=== PATIENT | female | born 1970 | race Caucasian/White ===

== ENCOUNTER 2018-07-29 22:02 | Emergency (ER) | payer MEDICAID ==
[2018-07-29] MEDS ORDERED: Sodium Chloride 0.9% 1000 ML 1,000 ML IV STA (22:29)
--- NOTE | 2018-07-29 22:47 | ERPHSYRPT ---
- History of Present Illness Time Seen by Provider: 07/29/18 22:39 Source: patient Exam Limitations: no limitations Patient Subjective Stated Complaint: pt states she thinks she has had a uti for approx 2 weeks and is now having increased pain in bilat flanks and pain in joints and sttes she also has sores in her mouth. fever at home for last 3 days up to 103 Triage Nursing Assessment: pt alert and oriented, asnwers questions approp. pt ambulatory with steady gait noted. respirations nonlabored with lungs cta. abd soft and nontender to lihgt palpation. mild tenderness noted in lower back. pt states she is unable to urinate at this time. Physician History: 48-year-old white female arrives with complaint that she's had bilateral flank pain nausea symptoms for 3 weeks she states she's been having pain in her joints. Patient states she's had a fever at home. Past medical history includes hypercholesterolemia, fibromyalgia, bulging disks in her back, tachycardia, Ehler Danlos Past surgical history includes orthopedic surgery Patient with multiple allergies. Timing/Duration: week(s) (3 weeks) Severity: moderate Modifying Factors: Improves With: nothing Associated Symptoms: nausea, fever, other (bilateral flank pain), No vomiting, No abdominal pain, No shortness of breath, No heartburn, No diaphoresis, No cough, No chills, No chest pain, No headaches, No loss of appetite, No malaise, No rash, No syncope, No seizure, No weakness Allergies/Adverse Reactions: codeine Allergy (Verified 07/29/18 22:26) erythromycin base Allergy (Verified 07/29/18 22:26) nitrofurantoin [From Macrobid] Allergy (Verified 07/29/18 22:26) ondansetron [From Zofran] Allergy (Verified 07/29/18 22:26) Penicillins Allergy (Verified 07/29/18 22:26) povidone-iodine [From Betadine] Allergy (Verified 07/29/18 22:26) prednisone Allergy (Verified 07/29/18 22:26) soap [From Betadine] Allergy (Verified 07/29/18 22:26) sulfamethoxazole [From Bactrim] Allergy (Verified 07/29/18 22:26) trimethoprim [From Bactrim] Allergy (Verified 07/29/18 22:26) Home Medications: Atorvastatin Calcium [Lipitor] 20 mg PO DAILY 07/29/18 [History] Buspirone HCl [Buspar] 10 mg PO BID 07/29/18 [History] Clonazepam [Klonopin] 2 mg PO BID 07/29/18 [History] Cyclobenzaprine HCl 10 mg [Cyclobenzaprine 10 MG] 10 mg PO BID PRN PRN 05/07 [History] Diclofenac Epolamine PATCH [Flector PATCH] 1 each TP BID 07/29/18 [History ] Duloxetine HCl 30 mg [Cymbalta 30 MG Capsule] 30 mg PO DAILY 07/29/18 [ History] Duloxetine HCl 30 mg [Cymbalta 30 MG Capsule] 60 mg PO HS 07/29/18 [ History] Fish Oil/Dha/Epa [Fish Oil 1,200 mg Fish Oil] 1 each PO DAILY 07/29/18 [History] Gabapentin [Neurontin] 800 mg PO TID 07/29/18 [History] Lorazepam 0.5 mg [Ativan 0.5 MG] 0.5 mg PO Q6-8HPRN PRN 07/29/18 [History] Metoprolol Succinate 50 mg [Toprol Xl 50 MG] 50 mg PO DAILY 07/29/18 [ History] Naproxen 500 mg [Naprosyn 500 MG] 500 mg PO BID 07/29/18 [History] Oxycodone HCl/Acetaminophen [Percocet 7.5-325 mg Tablet] 1 each PO TID PRN 07/29 [History] Hx Tetanus, Diphtheria Vaccination/Date Given: Yes Hx Influenza Vaccination/Date Given: No Hx Pneumococcal Vaccination/Date Given: No Immunizations Up to Date: Yes - Review of Systems Constitutional: Fever, No Chills, No Fatigue, No Lethargy, No Malaise, No Night Sweats, No Weakness, No Weight Loss Eyes: No Symptoms Ears, Nose, & Throat: No Symptoms Respiratory: No Cough, No Dyspnea Cardiac: No Chest Pain, No Edema, No Syncope Abdominal/Gastrointestinal: Nausea, Vomiting, No Abdominal Pain, No Diarrhea, No Constipation (a), No Hematemesis, No Hematochezia, No Melena, No Dysphagia, No Appetite Changes Genitourinary Symptoms: Dysuria, Flank Pain, No Frequency, No Hematuria, No Hesitancy, No Incontinence, No Urgency, No Urinary Retention, No Menorrhagia, No , No Vaginal Bleeding, No Vaginal Discharge, No Vaginal Itching Musculoskeletal: Arthralgias, Back Pain, No Neck Pain, No Deformity, No Fall, No Injury, No Joint Redness, No Joint Pain, No Joint Swelling, No Myalgias Skin: No Rash Neurological: No Dizziness, No Focal Weakness, No Sensory Changes Psychological: No Symptoms Endocrine: No Symptoms All Other Systems: Reviewed and Negative - Past Medical History Pertinent Past Medical History: Yes Cardiac History: High Cholesterol, Other Other Medical History: fibromyalgia, bulging discs in back, tachycardia, ehler- danlo - Past Surgical History Past Surgical History: Yes Musculoskeletal: Orthopedic Surgery - Social History Smoking Status: Current every day smoker How long have you smoked: 34 Exposure to second hand smoke: No Patient Lives Alone: Yes - Female History Hx Now: No - Nursing Vital Signs Nursing Vital Signs: Initial Vital Signs Temperature 98.3 F 07/29/18 22:13 Pulse Rate 101 H 07/29/18 22:13 Respiratory Rate 18 07/29/18 22:13 Blood Pressure 101/65 07/29/18 22:13 O2 Sat by Pulse Oximetry 99 07/29/18 22:13 Pain Scale Pain Intensity 7 - Physical Exam General Appearance: no apparent distress, alert Eye Exam: PERRL/EOMI, eyes nml inspection Ears, Nose, Throat Exam: normal ENT inspection, TMs normal, pharynx normal, moist mucous membranes Neck Exam: normal inspection, non-tender, supple, full range of motion Respiratory Exam: normal breath sounds, lungs clear, No respiratory distress Cardiovascular Exam: regular rate/rhythm, normal heart sounds, normal peripheral pulses, capillary refill <2 sec Gastrointestinal/Abdomen Exam: soft, normal bowel sounds, No tenderness, No mass Back Exam: normal inspection, normal range of motion, No CVA tenderness, No vertebral tenderness Extremity Exam: normal inspection, normal range of motion, pelvis stable Neurologic Exam: alert, oriented x 3, cooperative, plasma table operator II-XII nml as tested, normal mood/affect, nml cerebellar function, nml station & gait, sensation nml, No motor deficits Skin Exam: normal color SpO2 Interpretation: normal (we'll with her99%) SpO2: 99 Ordered Tests: Active Orders 24 hr Category Date Time Status IV Insertion STAT Care 07/29/18 22:29 Active BLOOD CULTURE Stat Lab 07/29/18 23:01 Received CBC W DIFF Stat Lab 07/29/18 23:01 Completed CMP Stat Lab 07/29/18 23:01 Completed CULTURE,URINE Stat Lab 07/29/18 23:44 Received HCG QUALITATIVE,SERUM Stat Lab 07/29/18 23:01 Completed Lactic Acid Stat Lab 07/29/18 22:58 Completed Manual Differential NC Stat Lab 07/29/18 23:01 Completed UA W/RFX UR CULTURE Stat Lab 07/29/18 23:44 Completed Urine Triage Profile Stat Lab 07/29/18 23:44 Completed Medication Summary Generic Name Dose Route Start Last Admin Trade Name Freq PRN Reason Stop Dose Admin Sodium Chloride 1,000 mls @ 999 mls/hr 07/30/18 00:19 07/30/18 00:27 Sodium Chloride 0.9% 1000 Ml IV 07/30/18 01:19 999 mls/hr .Q1H1M STA Administration Discontinued Medications Generic Name Dose Route Start Last Admin Trade Name Freq PRN Reason Stop Dose Admin Sodium Chloride 1,000 mls @ 999 mls/hr 07/29/18 22:29 07/30/18 00:57 Sodium Chloride 0.9% 1000 Ml IV 07/29/18 23:29 Infused .Q1H1M STA Infusion Sodium Chloride Confirm 07/29/18 23:24 Sodium Chloride 0.9% 1000 Ml Administered 07/29/18 23:25 Dose 1,000 mls @ ud .ROUTE .STK-MED ONE Ceftriaxone Sodium/Dextrose 1 g in 50 mls @ 100 mls/hr 07/30/18 00:20 00:27 Rocephin 1 Gm-D5w 50 Ml Bag IV 07/30/18 00:49 100 mls/hr STAT STA 100 mls/hr Administration Sodium Chloride Confirm 07/30/18 00:24 Sodium Chloride 0.9% 1000 Ml Administered 07/30/18 00:25 Dose 1,000 mls @ ud .ROUTE .STK-MED ONE Ceftriaxone Sodium/Dextrose Confirm 07/30/18 00:24 Rocephin 1 Gm-D5w 50 Ml Bag Administered 07/30/18 00:25 Dose 1 g in 50 mls @ ud IV .STK-MED ONE Ketorolac Tromethamine 30 mg 07/29/18 23:23 07/29/18 23:26 Toradol 30 Mg Injection IM 07/29/18 23:24 30 mg STAT ONE Administration Ketorolac Tromethamine Confirm 07/29/18 23:24 Toradol 30 Mg Injection Administered 07/29/18 23:25 Dose 30 mg .ROUTE .STK-MED ONE Morphine Sulfate 4 mg 07/30/18 00:19 07/30/18 00:28 Morphine Sulfate 4 Mg Inj IV 07/30/18 00:20 4 mg STAT ONE Administration Morphine Sulfate Confirm 07/30/18 00:24 Morphine Sulfate 4 Mg Inj Administered 07/30/18 00:25 Dose 4 mg .ROUTE .STK-MED ONE Lab/Rad Data: Laboratory Result Diagrams 07/29/18 23:01 07/29/18 23:01 Laboratory Results 07/29/18 07/29/18 07/29/18 Range/Units 23:44 23:44 23:01 WBC (4.0-10.5) K/mm3 RBC (4.1-5.4) M/mm3 Hgb (12.0-16.0) gm/dl Hct (35-47) % MCV (78-100) fl MCH (26-32) pg MCHC (32-36) g/dl RDW (11.5-14.0) % Plt Count (150-450) K/mm3 MPV (6-9.5) fl Absolute Granulocytes (1.4-6.9) Sodium (137-145) mmol/L Potassium (3.5-5.1) mmol/L Chloride (98-107) mmol/L Carbon Dioxide (22-30) mmol/L Anion Gap (5-15) MEQ/L BUN (7-17) mg/dL Creatinine (0.52-1.04) mg/dL Estimated GFR ML/MIN Glucose (74-106) mg/dL Lactic Acid (0.4-2.0) Calcium (8.4-10.2) mg/dL Total Bilirubin (0.2-1.3) mg/dL AST (14-36) U/L ALT (0-35) U/L Alkaline Phosphatase (38-126) U/L Serum Total Protein (6.3-8.2) g/dL Albumin (3.5-5.0) g/dL Serum , Qual NEGATIVE (Negative) Urine Color SMITA (YELLOW) Urine Appearance CLOUDY (CLEAR) Urine pH 5.0 (5-6) Ur Specific [employer] [place] 1.012 (1.005-1.025) Urine Protein 100 (Negative) Urine Ketones NEGATIVE (NEGATIVE) Urine Blood MODERATE (0-5) [place]/ul Urine Nitrite NEGATIVE (NEGATIVE) Urine Bilirubin NEGATIVE (NEGATIVE) Urine Urobilinogen 2 (0-1) mg/dL Ur Leukocyte Esterase LARGE (NEGATIVE) Urine WBC (Auto) >100 (0-5) /HPF Urine RBC (Auto) 6-10 (0-2) /HPF U Epithel Cells (Auto) RARE (FEW) /HPF Urine Bacteria (Auto) MANY (NEGATIVE) /HPF Unidentified Crystals 25-50 (NEGATIVE) /HPF Urine Mucus (Auto) SLIGHT (NEGATIVE) /HPF Urine Culture Reflexed YES (NO) Urine Glucose NEGATIVE (NEGATIVE) mg/dL Urine Opiates Level NEGATIVE (NEGATIVE) Ur Methadone NEGATIVE (NEGATIVE) Urine Barbiturates NEGATIVE (NEGATIVE) Ur Phencyclidine (PCP) NEGATIVE (NEGATIVE) Urine Amphetamine NEGATIVE (NEGATIVE) U Benzodiazepine Level NEGATIVE (NEGATIVE) Urine Cocaine NEGATIVE (NEGATIVE) Urine Marijuana (THC) NEGATIVE (NEGATIVE) 07/29/18 07/29/18 07/29/18 Range/Units 23:01 23:01 22:58 WBC 17.8 H (4.0-10.5) K/mm3 RBC 3.57 L (4.1-5.4) M/mm3 Hgb 11.2 L (12.0-16.0) gm/dl Hct 34.4 L (35-47) % MCV 96.4 (78-100) fl MCH 31.3 (26-32) pg MCHC 32.6 (32-36) g/dl RDW 13.4 (11.5-14.0) % Plt Count 285 (150-450) K/mm3 MPV 9.9 H (6-9.5) fl Absolute Granulocytes 14.28 H (1.4-6.9) Sodium 137 (137-145) mmol/L Potassium 3.3 L (3.5-5.1) mmol/L Chloride 102 (98-107) mmol/L Carbon Dioxide 27 (22-30) mmol/L Anion Gap 11.2 (5-15) MEQ/L BUN 19 H (7-17) mg/dL Creatinine 1.59 H (0.52-1.04) mg/dL Estimated GFR 36.7 ML/MIN Glucose 162 H (74-106) mg/dL Lactic Acid 1.0 (0.4-2.0) Calcium 8.7 (8.4-10.2) mg/dL Total Bilirubin 0.70 (0.2-1.3) mg/dL AST 21 (14-36) U/L ALT 23 (0-35) U/L Alkaline Phosphatase 136 H (38-126) U/L Serum Total Protein 6.5 (6.3-8.2) g/dL Albumin 3.3 L (3.5-5.0) g/dL Serum , Qual (Negative) Urine Color (YELLOW) Urine Appearance (CLEAR) Urine pH (5-6) Ur Specific [employer] [place] (1.005-1.025) Urine Protein (Negative) Urine Ketones (NEGATIVE) Urine Blood (0-5) [place]/ul Urine Nitrite (NEGATIVE) Urine Bilirubin (NEGATIVE) Urine Urobilinogen (0-1) mg/dL Ur Leukocyte Esterase (NEGATIVE) Urine WBC (Auto) (0-5) /HPF Urine RBC (Auto) (0-2) /HPF U Epithel Cells (Auto) (FEW) /HPF Urine Bacteria (Auto) (NEGATIVE) /HPF Unidentified Crystals (NEGATIVE) /HPF Urine Mucus (Auto) (NEGATIVE) /HPF Urine Culture Reflexed (NO) Urine Glucose (NEGATIVE) mg/dL Urine Opiates Level (NEGATIVE) Ur Methadone (NEGATIVE) Urine Barbiturates (NEGATIVE) Ur Phencyclidine (PCP) (NEGATIVE) Urine Amphetamine (NEGATIVE) U Benzodiazepine Level (NEGATIVE) Urine Cocaine (NEGATIVE) Urine Marijuana (THC) (NEGATIVE) - Progress Progress: improved Progress Note: 07/29/18 22:47 48-year-old white female with history of hypercholesterolemia fibromyalgia, bulging disks in her back, tachycardia, Ehler Danlos. States that she's been having discolored urine and bilateral flank pain symptoms for 3 weeks. Patient states she's had a fever at home she's had some nausea. On arrival patient does not appear to be in severe distress vitals are stable. Patient does take positive for sepsis however she does not appear to be sepsis she is alert oriented in no distress vitals are stable she is afebrile. Will go ahead and obtain CBC CMP lactate blood cultures urine. Give patient IV fluids. Of note is the fact that the patient is on chronic narcotic analgesia for pain. She states that she apparently moved to the area from [facility] and is currently living in [facility]. Inspect his repeat reviewed patient is noted to be receiving recent oxycodone dosage is not identified last prescription was filled on July 12, 2018 she received 135 of these these were prescribed from [facility] patient also is chronically on lorazepam again dose is not specified she received 60 of these on July 09, 2018 patient appears to receive regular prescriptions from [facility] for narcotics including oxycodone as well as lorazepam. 07/30/18 00:20 Patient's lactate is normal. Patient does have a white count of 17,000. Patient has greater 100 white cells per high-power field in her urine. Patient improved after 1 L of normal saline and Toradol 30 IV. Patient states she still has some back pain. Will give patient an additional liter of normal saline give patient 4 mg IV. Patient states she is able to take Rocephin Will give patient 1 g of Rocephin IV. Will plan on sending patient home on either Cipro or Levaquin. Patient will need to continue her pain medications prescribed by her pain control physician. Will give patient a list of local physicians patient can follow up with. Patient offered CT scan due to her bilateral flank pain she does not want this she states she's been through this before and is been UTIs. - Departure Time of Disposition: 01:04 Departure Disposition: Home Clinical Impression: Bilateral flank pain, History of chronic pain Urinary tract infection Qualifiers: Urinary tract infection type: site unspecified Hematuria presence: without hematuria Qualified Code(s): N39.0 - Urinary tract infection, site not specified Condition: Fair Critical Care Time: No Referrals: DOCTOR,NO FAMILY [Primary Care Provider] - Additional Instructions: Return home. Plenty of fluids. Levaquin 500 mg orally daily for 7 days. 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 Return for acute distress or for severe symptoms. Prescriptions: Levofloxacin [Levaquin] 500 mg PO DAILY #7 tablet
[2018-07-29 23:06] LABS: Granulocyte Absolute (ANC) 14.28 (1.4-6.9); Hematocrit 34.4 % (35-47); Hemoglobin 11.2 gm/dl (12.0-16.0); Mean Cell Volume 96.4 fl (78-100); Mean Corpuscular Hgb Concent. 32.6 g/dl (32-36); Mean Platelet Volume 9.9 fl (6-9.5); Platelet Count 285 K/mm3 (150-450); Red Blood Count 3.57 M/mm3 (4.1-5.4); Red Cell Distribution Width 13.4 % (11.5-14.0); White Blood Count 17.8 K/mm3 (4.0-10.5)
[2018-07-29] MEDS ORDERED: TORAdol 30 mg Injection IM ONE (23:23)
[2018-07-29] MEDS ORDERED: TORAdol 30 mg Injection ONE (23:24)
[2018-07-29] MEDS ORDERED: Sodium Chloride 0.9% 1000 ML 1,000 ML ONE (23:24)
[2018-07-29 23:25] LABS: ALBUMIN 3.3 g/dL (3.5-5.0); ANION GAP 11.2 MEQ/L (5-15); BILIRUBIN,TOTAL 0.7 mg/dL (0.2-1.3); Calcium 8.7 mg/dL (8.4-10.2); Creatinine 1 1.59 mg/dL (0.52-1.04); Potassium 3.3 mmol/L (3.5-5.1); Total Protein 6.5 g/dL (6.3-8.2)
[2018-07-29 23:38] LABS: Mean Corpuscular Hemoglobin 31.3 pg (26-32)
[2018-07-30 00:01] LABS: Appearance CLOUDY (CLEAR); Bacteria MANY /HPF (NEGATIVE); Bilirubin NEGATIVE (NEGATIVE); Blood MODERATE Ery/ul (0-5); Crystals Unidentified 25-50 /HPF (NEGATIVE); Epithelial Cells RARE /HPF (FEW); Glucose NEGATIVE (NEGATIVE); Ketones NEGATIVE (NEGATIVE); Leukocyte Esterase LARGE (NEGATIVE); Mucus SLIGHT /HPF (NEGATIVE); Nitrite NEGATIVE (NEGATIVE); Protein,Urine Dip 100 (Negative); Specific Gravity 1.012 (1.005-1.025); Urobilinogen 2 mg/dL (0-1); WBC >100 /HPF (0-5)
[2018-07-30 00:03] LABS: Amphetamine,Urine NEGATIVE (NEGATIVE); Barbiturate,Urine NEGATIVE (NEGATIVE); Benzodiazepine,Urine NEGATIVE (NEGATIVE); Cocaine,Urine NEGATIVE (NEGATIVE); Methadone,Urine NEGATIVE (NEGATIVE); Opiate,Urine NEGATIVE (NEGATIVE); PCP,Urine NEGATIVE (NEGATIVE); THC,Urine NEGATIVE (NEGATIVE)
[2018-07-30] MEDS ORDERED: MORPHINE SULFATE 4 MG INJ IV ONE (00:19)
[2018-07-30] MEDS ORDERED: Sodium Chloride 0.9% 1000 ML 1,000 ML IV STA (00:19)
[2018-07-30] MEDS ORDERED: ROCEPHIN 1 Gm-D5w 50 ml Bag** 1 G/50 ML IVPB IV STA (00:20)
[2018-07-30] MEDS ORDERED: ROCEPHIN 1 Gm-D5w 50 ml Bag** 1 G/50 ML IVPB IV ONE (00:24)
[2018-07-30] MEDS ORDERED: Sodium Chloride 0.9% 1000 ML 1,000 ML ONE (00:24)
[2018-07-30] MEDS ORDERED: MORPHINE SULFATE 4 MG INJ ONE (00:24)
[2018-07-30 01:08] VITALS: O2SAT 99
[2018-07-30 01:18] LABS: BAND 4 % (0.0-2.0); Lymphocytes 16 % (24-44); Monocyte 1 % (0.0-12.0); Neutrophils 79 % (36.0-66.0); Platelet Estimate NORMAL (NORMAL); Total Cells Counted 100
[2018-07-30 02:00] VITALS: BP 104/68; PULSE 74
== END 2018-07-30 01:59 | disposition home or self-care (01) ==
LOC: ED 22:02
DX: R10.9 Unspecified abdominal pain (principal); N39.0 Urinary tract infection, site not specified; E78.00 Pure hypercholesterolemia, unspecified; M79.7 Fibromyalgia; Q79.6 Ehlers-Danlos syndromes
CPT/HCPCS: 36415; 80053; 80307; 81001; 81025; 83605; 85025; 87040; 87077; 87086; 87186; 96360; 96361; 96365; 96374; 96375; 99284; J0696; J1885; J2270

== ENCOUNTER 2018-08-10 19:17 | Emergency (ER) | payer MEDICAID ==
--- NOTE | 2018-08-10 19:44 | ERPHSYRPT ---
- History of Present Illness Time Seen by Provider: 08/10/18 19:30 Source: patient Exam Limitations: no limitations Patient Subjective Stated Complaint: pt is alert and oriented. pt is ambulatory with a steady gait. pt comes in after a fall on to pavement on saturday morning. pt states he landed on her left elbow. there is a small abrasion on the left forearm and some bruising noted to the elbow. pt is able to move elbow but movement is limited due to pain. pt states that pain goes from her elbow to her forearm and wrist. pt cap refil <3, radial pulses strong and equal. Triage Nursing Assessment: see above Physician History: 48 y/o right handed white female presents with greater than one day h/o left elbow and forearm pain after twisting left ankle and falling onto left elbow. pt states she just got over a left forearm/wrist fx from falling Occurred: yesterday Method of Injury: fell Quality: constant Severity of Pain-Max: moderate Severity of Pain-Current: mild Extremities Pain Location: elbow: left, forearm: left Modifying Factors: Improves With: movement (hurts) Allergies/Adverse Reactions: adhesive tape Allergy (Verified 08/10/18 19:33) codeine Allergy (Verified 07/29/18 22:26) erythromycin base Allergy (Verified 07/29/18 22:26) nitrofurantoin [From Macrobid] Allergy (Verified 07/29/18 22:26) ondansetron [From Zofran] Allergy (Verified 07/29/18 22:26) Penicillins Allergy (Verified 07/29/18 22:26) povidone-iodine [From Betadine] Allergy (Verified 07/29/18 22:26) prednisone Allergy (Verified 07/29/18 22:26) soap [From Betadine] Allergy (Verified 07/29/18 22:26) sulfamethoxazole [From Bactrim] Allergy (Verified 07/29/18 22:26) trimethoprim [From Bactrim] Allergy (Verified 07/29/18 22:26) Home Medications: Atorvastatin Calcium [Lipitor] 20 mg PO DAILY 07/29/18 [History] Buspirone HCl [Buspar] 10 mg PO BID 07/29/18 [History] Clonazepam [Klonopin] 2 mg PO BID 07/29/18 [History] Cyclobenzaprine HCl 10 mg [Cyclobenzaprine 10 MG] 10 mg PO BID PRN PRN 05/07 [History] Diclofenac Epolamine PATCH [Flector PATCH] 1 each TP BID 07/29/18 [History ] Duloxetine HCl 30 mg [Cymbalta 30 MG Capsule] 30 mg PO DAILY 07/29/18 [ History] Duloxetine HCl 30 mg [Cymbalta 30 MG Capsule] 60 mg PO HS 07/29/18 [ History] Fish Oil/Dha/Epa [Fish Oil 1,200 mg Fish Oil] 1 each PO DAILY 07/29/18 [History] Gabapentin [Neurontin] 800 mg PO TID 07/29/18 [History] Lorazepam 0.5 mg [Ativan 0.5 MG] 0.5 mg PO Q6-8HPRN PRN 07/29/18 [History] Metoprolol Succinate 50 mg [Toprol Xl 50 MG] 50 mg PO DAILY 07/29/18 [ History] Naproxen 500 mg [Naprosyn 500 MG] 500 mg PO BID 07/29/18 [History] Oxycodone HCl/Acetaminophen [Percocet 7.5-325 mg Tablet] 1 each PO TID PRN 07/29 [History] Hx Tetanus, Diphtheria Vaccination/Date Given: Yes (fall 2014) Hx Influenza Vaccination/Date Given: No Hx Pneumococcal Vaccination/Date Given: No Immunizations Up to Date: Yes - Review of Systems Constitutional: No Symptoms Eyes: No Symptoms Ears, Nose, & Throat: No Symptoms Respiratory: No Symptoms Cardiac: No Symptoms Abdominal/Gastrointestinal: No Symptoms Genitourinary Symptoms: No Symptoms Musculoskeletal: Fall, Joint Swelling (left elbow.) Neurological: No Symptoms Psychological: No Symptoms Endocrine: No Symptoms Hematologic/Lymphatic: No Symptoms Immunological/Allergic: No Symptoms All Other Systems: Reviewed and Negative - Past Medical History Pertinent Past Medical History: Yes Neurological History: No Pertinent History ENT History: No Pertinent History Cardiac History: High Cholesterol, Other Respiratory History: No Pertinent History Endocrine Medical History: No Pertinent History Musculoskeletal History: No Pertinent History GI Medical History: No Pertinent History History: No Pertinent History Psycho-Social History: No Pertinent History Female Reproductive Disorders: No Pertinent History Other Medical History: fibromyalgia, bulging discs in back, tachycardia, ehler- danlo - Past Surgical History Past Surgical History: Yes Neuro Surgical History: No Pertinent History Cardiac: No Pertinent History Respiratory: No Pertinent History Gastrointestinal: No Pertinent History Genitourinary: No Pertinent History Musculoskeletal: Orthopedic Surgery Female Surgical History: Other Other Surgical History: ablasion, right hand thumb fused - Social History Smoking Status: Current every day smoker How long have you smoked: 34 years Exposure to second hand smoke: No Drug Use: none Patient Lives Alone: Yes - Female History Hx Now: No - Nursing Vital Signs Nursing Vital Signs: Initial Vital Signs Temperature 97.8 F 08/10/18 19:23 Pulse Rate 94 H 08/10/18 19:23 Respiratory Rate 16 08/10/18 19:23 Blood Pressure 145/80 08/10/18 19:23 O2 Sat by Pulse Oximetry 99 08/10/18 19:23 Pain Scale Pain Intensity 8 - Physical Exam General Appearance: no apparent distress, alert Eyes, Ears, Nose, Throat Exam: normal ENT inspection, moist mucous membranes Neck Exam: normal inspection, non-tender, supple, full range of motion Cardiovascular/Respiratory Exam: chest non-tender, no respiratory distress Abdominal Exam: non-tender Back Exam: normal inspection, normal range of motion, No CVA tenderness, No vertebral tenderness Shoulder Exam: normal inspection, non-tender, no evidence of injury Elbow/Forearm Exam: bone tenderness, ecchymosis, soft tissue tenderness, swelling Wrist Exam: normal inspection, non-tender, no evidence of injury Hand Exam: normal inspection, non-tender, no evidence of injury, normal ROM Neuro/Tendon Exam: normal sensation, normal motor functions, normal tendon functions Mental Status Exam: alert, oriented x 3, cooperative SpO2 Interpretation: normal SpO2: 99 O2 Delivery: Room Air - Course Nursing assessment & vital signs reviewed: Yes Ordered Tests: Active Orders 24 hr Category Date Time Status Sling Application STAT Care 08/10/18 20:58 Active ELBOW (MINIMUM 3 VIEWS) Stat Exams 08/10/18 19:37 Taken FOREARM Stat Exams 08/10/18 19:37 Taken Medication Summary Discontinued Medications Generic Name Dose Route Start Last Admin Trade Name Freq PRN Reason Stop Dose Admin Oxycodone/Acetaminophen 1 tab 08/10/18 20:11 08/10/18 20:16 Percocet Tablet 5/325mg PO 08/10/18 20:12 1 tab STAT STA Administration Oxycodone/Acetaminophen Confirm 08/10/18 20:15 Percocet Tablet 5/325mg Administered 08/10/18 20:16 Dose 1 tab .ROUTE .STK-MED ONE - Progress Progress: improved, pain not gone completely, re-examined Progress Note: 08/10/18 20:51 xray left elbow/forearm-minimally displaced fx prox radial articular surface. effusion present Counseled pt/family regarding: diagnosis, need for follow-up, rad results - Departure Time of Disposition: 21:05 Departure Disposition: Home Clinical Impression: Left radial head fracture Condition: Stable Critical Care Time: No Referrals: DOCTOR,NO FAMILY [Primary Care Provider] - Additional Instructions: wear sling for comfort. follow up with primary orthopedic doctor for further management. Prescriptions: Oxycodone HCl/Acetaminophen [Percocet 5-325 mg Tablet] 1 each PO Q6H PRN PRN # 10 tablet MDD 4 PRN Reason: Pain
[2018-08-10] MEDS ORDERED: PERCOCET TABLET 5/325MG PO STA (20:11)
[2018-08-10] MEDS ORDERED: PERCOCET TABLET 5/325MG ONE (20:15)
[2018-08-10 20:57] VITALS: BP 148/102
[2018-08-10 20:58] VITALS: PULSE 77; O2SAT 99
--- NOTE | 2018-08-11 08:38 | XRAY ---
Indication: Pain following fall. Comparison: None 3 views of the left elbow demonstrates nondisplaced radial head fracture with intra-articular extension and small effusion. No other bony, articular, or soft tissue abnormalities. Comment: Preliminary interpretation was made by [facility]. No discrepancy.
--- NOTE | 2018-08-11 08:38 | XRAY ---
Indication: Pain following fall. Comparison: None 2 views of the left forearm demonstrates nondisplaced radial head fracture with intra-articular extension and small elbow effusion. No other bony, articular, or soft tissue abnormalities. Comment: Preliminary interpretation was made by [facility]. No discrepancy.
== END 2018-08-10 21:22 | disposition home or self-care (01) ==
LOC: ED 19:17
DX: S52.122A Displaced fracture of head of left radius, initial encounter for closed fracture (principal); S50.812A Abrasion of left forearm, initial encounter; W18.30XA Fall on same level, unspecified, initial encounter; X50.1XXA Overexertion from prolonged static or awkward postures, initial encounter; Y93.9 Activity, unspecified; Y92.9 Unspecified place or not applicable; Y99.9 Unspecified external cause status; M79.632 Pain in left forearm; E78.00 Pure hypercholesterolemia, unspecified
CPT/HCPCS: 73080; 73090; 99284; A9270-GY